=== PATIENT | male | born 1995 | race Asian ===

== ENCOUNTER 2021-02-06 20:40 | Emergency (ER) | payer OTHER ==
[~2021-02-06] VITALS: Ht 165.1 cm; Wt 81.8 kg
[~2021-02-06 20:40] MED LIST: IBUP-1506 PO
[2021-02-06 20:49] VITALS: BP 127/61
[2021-02-06] MEDS ORDERED: DiphenhydrAMINE HCL 50 MG/ML VIAL IM ONE (21:00)
== END 2021-02-06 21:09 | disposition home or self-care (01) ==
LOC: EMS 20:42
DX: L20.9 Atopic dermatitis, unspecified (principal)
CPT/HCPCS: 96372; 99283; J1200

== ENCOUNTER 2022-06-07 18:56 | Emergency (ER) | payer OTHER ==
[~2022-06-07] VITALS: Ht 165.1 cm; Wt 90.9 kg
[2022-06-07] MEDS ORDERED: ACET-2247 PO (18:58)
[2022-06-07 19:00] VITALS: BP 128/77
== END 2022-06-07 20:00 | disposition left against medical advice (07) ==
LOC: EMS 18:57
DX: Z53.21 Procedure and treatment not carried out due to patient leaving prior to being seen by health care provider (principal)